=== PATIENT | female | born 1945 ===

== ENCOUNTER 2019-12-27 06:00 | Day surgery (SDC) | payer OTHER | END 2019-12-27 11:20 | disposition home or self-care (01) | LOC: AMB-ENDOS 06:00 | PROVIDERS: ATTEND Colon & Rectal Surgery | DX: K62.89 Other specified diseases of anus and rectum (principal); Z12.11 Encounter for screening for malignant neoplasm of colon; K64.8 Other hemorrhoids; Z20.828 Contact with and (suspected) exposure to other viral communicable diseases ==